=== PATIENT | male | born 1995 | race African-American/Black ===

== ENCOUNTER 2018-04-22 15:05 | Emergency (ER) | payer SELFPAY ==
[2018-04-22] MEDS ORDERED: Enoxaparin Sodium 80 MG/0.8 ML SYRINGE ONE (15:31)
--- NOTE | 2018-04-22 15:54 | RAD ---
RIGHT FINGER TWO VIEW: 04/22/18 HISTORY: Trauma. COMPARISON: None. FINDINGS: There is a dorsal soft tissue contusion distal phalanx of the index finger. No acute displaced fractu re or malalignment. IMPRESSION: No acute fracture or malalignment. POS: [facility]
[2018-04-22] MEDS ORDERED: Bacitracin Zinc 1 Packet ONE (16:03)
== END 2018-04-22 16:28 | disposition home or self-care (01) ==
LOC: ERS 15:05
DX: S60.021A Contusion of right index finger without damage to nail, initial encounter (principal); W23.0XXA Caught, crushed, jammed, or pinched between moving objects, initial encounter
CPT/HCPCS: J1650

== ENCOUNTER 2018-06-03 13:43 | Emergency (ER) | payer SELFPAY ==
[2018-06-03] MEDS ORDERED: AMOXicillin 250 MG CAP ONE (16:01)
[2018-06-03] MEDS ORDERED: Proparacaine 0.5% Opth 15 ML BOT ONE (16:01)
[2018-06-03] MEDS ORDERED: Fluorescein Opthalmic Strip ONE (16:02)
== END 2018-06-03 16:28 | disposition home or self-care (01) ==
LOC: ERS 13:43
DX: S05.02XA Injury of conjunctiva and corneal abrasion without foreign body, left eye, initial encounter (principal); H00.015 Hordeolum externum left lower eyelid; X58.XXXA Exposure to other specified factors, initial encounter
CPT/HCPCS: 99283

== ENCOUNTER 2018-08-09 15:22 | Emergency (ER) | payer SELFPAY ==
[2018-08-09 16:08] LABS: #Basophils 0.1 thou/uL (0.0-0.2); #Eosinphils 0.2 thou/uL (0.0-0.7); #Lymphocytes 1.1 thou/uL (1.20-3.40); #Monocytes 0.5 thou/uL (0.11-0.59); #Neutrophils 2.9 thou/uL (1.40-6.50); %Basophils 1.2 % (0.0-1.0); %Eosinophils 4.5 % (0.0-10.0); %Lymphocytes 22.9 % (28.0-48.0); %Monocytes 10.9 % (0.0-4.0); %Neutrophils 60.6 % (31.0-61.0); Hemoglobin 15.1 g/dL (14.0-18.0); Mean Corpuscular HGB CONC 32.3 g/dL (32.0-36.0); Mean Corpuscular Hemoglobin 30.3 pg (25.0-35.0); Mean Corpuscular Volume 93.9 fL (78.0-98.0); Mean Platelet Volume 7.9 fL (7.4-10.4); Platelet Count 233 thou/uL (130-400); RBC Distribution Width 12.3 % (11.5-14.5); White Blood Cell (WBC) Count 4.9 thou/uL (4.8-10.8)
[2018-08-09 16:31] LABS: ALT (SGPT) Less than 7 U/L (8-55); AST (SGOT) 15 U/L (5-34); Albumin 4.4 g/dL (3.5-5.0); Alkaline Phosphatase 83 U/L (Less than 750); Anion Gap 12 mmol/L (10-20); BUN (Urea Nitrogen) 8 mg/dL (8.9-20.6); Bilirubin, Total 0.3 mg/dL (0.2-1.2); Calc. Creatinine Clearance 0 mL/min (70-130); Calcium 9.9 mg/dL (7.8-10.44); Carbon Dioxide 26 mmol/L (22-29); Chloride 104 mmol/L (98-107); Estimated GFR-MDRD Greater than 90; Globulin 3.3 g/dL (2.4-3.5); Glucose 127 mg/dL (70-105); Potassium 3.6 mmol/L (3.5-5.1); Protein, Total 7.7 g/dL (6.0-8.3); Sodium 138 mmol/L (136-145)
[2018-08-09 17:11] LABS: Bilirubin Negative (Negative); Blood, Urine Negative (Negative); Clarity TURBID (Clear); Glucose, Urine (Dipstick) Negative (Negative); Leukocyte Negative (Negative); Nitrite Negative (Negative); Protein, Urine (Dipstick) Negative (Neg-Trace); pH, Urine 7.5 (5.0-9.0)
== END 2018-08-09 18:15 | disposition home or self-care (01) ==
LOC: ERS 15:22
DX: K52.9 Noninfective gastroenteritis and colitis, unspecified (principal); F17.210 Nicotine dependence, cigarettes, uncomplicated
CPT/HCPCS: 36415; 80053; 81003; 83690; 85025; 96372; 99406

== ENCOUNTER 2018-11-11 14:43 | Emergency (ER) | payer SELFPAY ==
--- NOTE | 2018-11-11 16:38 | RAD ---
CHEST TWO VIEWS: HISTORY: Cough. COMPARISON: None. FINDINGS: The lungs are clear. No pneumothorax or effusion. The cardiac silhouette and mediastinal contours a re within normal limits. IMPRESSION: No acute intrathoracic abnormality. POS: [facility]
== END 2018-11-11 16:18 | disposition home or self-care (01) ==
LOC: ERS 14:43
DX: J30.9 Allergic rhinitis, unspecified (principal); F17.210 Nicotine dependence, cigarettes, uncomplicated
CPT/HCPCS: 71046; 99406

== ENCOUNTER 2018-12-19 10:47 | Emergency (ER) | payer SELFPAY ==
--- NOTE | 2018-12-19 14:03 | RAD ---
CERVICAL SPINE AP LATERAL STANDARD: HISTORY: Neck pain. COMPARISON: None. FINDINGS: There is mild straightening of the cervical spine. No fracture. No malalignment. No facet arthrosi s. Minimal degenerative disk space narrowing at C5-6 and C6-7. A Schmorl's ode is present superior end plate of C6 and C7. Visualized ribs are unremarkable. Open mouth odontoid view is normal. IMPRESSION: Minimal spondylosis. POS: [facility]
--- NOTE | 2018-12-19 15:23 | RAD ---
TWO VIEWS CHEST: Date: 12-16-18 Provided Clinical History: Cough. FINDINGS: Comparison is made with the study 11-11-18. Cardiac and mediastinal silhouette is within normal limits. Lungs appear clear. No pleural fluid or p neumothorax apparent. IMPRESSION: No evidence for an acute cardiopulmonary process. POS: [facility]
== END 2018-12-19 14:52 | disposition home or self-care (01) ==
LOC: ERS 10:47
DX: J20.9 Acute bronchitis, unspecified (principal); J30.9 Allergic rhinitis, unspecified; F17.210 Nicotine dependence, cigarettes, uncomplicated
CPT/HCPCS: 71046; 72040; 87081; 87430; 87804

== ENCOUNTER 2021-09-16 13:04 | Emergency (ER) | payer SELFPAY ==
[2021-09-16] MEDS ORDERED: Acetaminophen 500 MG TAB ONE (13:40)
[2021-09-16] MEDS ORDERED: Ketorolac Tromethamine 30 MG/ML VIAL ONE (13:40)
== END 2021-09-16 15:47 | disposition home or self-care (01) ==
LOC: ERS 13:04
DX: S52.602A Unspecified fracture of lower end of left ulna, initial encounter for closed fracture (principal); F17.210 Nicotine dependence, cigarettes, uncomplicated; W22.8XXA Striking against or struck by other objects, initial encounter
CPT/HCPCS: 29125; 96372; J1885